=== PATIENT | female | born 2000 | race Caucasian/White ===

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

== ENCOUNTER 2023-05-06 12:06 | Emergency (ER) | payer MEDICAID ==
[~2023-05-06] VITALS: Ht 165.1 cm; Wt 61.2 kg
[2023-05-06 12:19] VITALS: BP 122/65
[2023-05-06 16:00] LABS: BILIRUBIN Negative (Negative); BLOOD 1+ (Negative); CLARITY Clear (Clear); COLOR Yellow (Yellow); GLUCOSE 2+ (Negative); KETONE Trace (Negative); LEUKO ESTERASE 1+ (Negative); NITRITE Negative (Negative); SPECIFIC GRAVITY <= 1.005 (1.001-1.030); UROBILINOGEN 0.2 E.U./dl (0.0-1.0)
[2023-05-06 16:14] LABS: BACTERIA 2+; RBC 0-2 rbc/hpf (0-2); WBC 21-30 wbc/hpf (0-5)
[2023-05-06] MEDS ORDERED: CIPRO500 MG PO (16:33)
== END 2023-05-06 16:38 | disposition home or self-care (01) ==
LOC: ED 12:06
PROVIDERS: Nurse Practitioner Family
DX: N39.0 Urinary tract infection, site not specified (principal); N12 Tubulo-interstitial nephritis, not specified as acute or chronic; Z90.49 Acquired absence of other specified parts of digestive tract

== ENCOUNTER 2025-06-29 17:31 | Emergency (ER) | payer SELFPAY ==
[~2025-06-29] VITALS: Ht 165.1 cm; Wt 68.0 kg
[~2025-06-29 17:31] MED LIST changes: +CIPRO500 MG PO
[2025-06-29 17:49] VITALS: BP 121/67
[2025-06-29] MEDS ORDERED: IBUPROFEN 600 MG TAB PO ONE (18:05)
== END 2025-06-29 19:12 | disposition home or self-care (01) ==
LOC: ED 17:31
DX: S96.912A Strain of unspecified muscle and tendon at ankle and foot level, left foot, initial encounter (principal); X50.1XXA Overexertion from prolonged static or awkward postures, initial encounter; Y93.89 Activity, other specified; Y99.8 Other external cause status; Y92.89 Other specified places as the place of occurrence of the external cause